=== PATIENT | female | born 1935 | race Caucasian/White ===

== ENCOUNTER 2018-08-05 15:44 | Emergency (ER) | payer MEDICARE, OTHER ==
[~2018-08-05] VITALS: Ht 154.9 cm; Wt 83.9 kg
--- OUTSIDE RECORDS SUMMARY | 2018-08-05 15:51 | XMS REPORT | Continuity of Care Document ---
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 Name Role Phone Anuel Zhang PP Unavailable Payers Payer name Insurance type Covered alliance party ID Authorization(s) Unknown Problems Condition Effective Dates (start - stop) Clinical Status Recurrent infections - *Fair Control Fatigue / Malaise - *Acute Hypothyroidism - *Chronic Leg pain - *Chronic Other specified menopausal and postmenopausal disorders - * Chronic Influenza Vaccine - Depression - *Fair Control - Edema - *Chronic Unspecified chronic bronchitis - *Chronic Family History Family Member Diagnosis Age At Onset Status Unknown Social History Social History Element Description Quantity Unknown Allergies, Adverse Reactions, Alerts Substance Reaction Severity Status Unknown Medications Medication Instructions Dosage Effective Dates (start - stop) Status Take 1 capsule by mouth every day as needed for anxiety. - Active syringe with needle (disp) 3 mL 22 x 1 1/2" 1 every other day. 2012 - Active Lomotil 2.5 mg-0.025 mg tablet take 2 tablet (5MG) by oral route every day as needed stat, then 1 tablet up to four times daily 5 MG - Active Zithromax Z-Doug 250 mg tablet take two tablets for 1 day and one tablet for 4 days. - Active levothyroxine 100 mcg tablet Take 1 tablet by mouth every day. 2012 - Active Depo-Estradiol 5 mg/mL intramuscular oil INJECT 1 ML EVERY 3 WEEKS 2013 - Active fosinopril 40 mg tablet take 1 tab daily - Active theophylline ER 200 mg tablet,extended release,12 hr 1 tab po BID 2013 - Active chlordiazepoxide 10 mg capsule take 1 capsule (10MG) by oral route every day as needed for anxiety - Active Flovent HFA 110 mcg/actuation aerosol inhaler Inhale 2 puffs by mouth twice a day to control asthma. Rinse mouth after use to prevent infection. 2013 - Active Lexapro 20 mg tablet Take 1 tablet by mouth daily. - Active ProAir HFA 90 mcg/actuation aerosol inhaler INHALE ONE TO TWO PUFFS EVERY 4-6 HOURS PRN - Active Percocet 7.5 mg-325 mg tablet Take 1 tablet by mouth 4 times a day as needed. - Active Immunizations Vaccine Date Status Comments Flu (split) (3 yrs or older) completed Flu (split) (3 yrs or older) completed pneumo (2 yrs or older) (PPV23) completed - Completed reason: source unspecified Results Test Name Date and Time Measure Units Reference Range Abnormal Flag Comments Unknown Vital Signs Date / Time: Height Weight Pulse Rate Blood Pressure Temperature /09:35:00 59.50 in 160.10 lbs 52 /min 122/78 mm[Hg] 96.9 F Procedures Procedure Date Unknown Encounters Encounter Location Date Patient Visit [address] Patient Visit Conversion Patient Visit [address] Patient Visit [address] Patient Visit [address] Patient Visit [address] Patient Visit [address] Patient [address] Patient [address] Patient [facility] Patient Visit [address] Patient Visit [address] Patient Visit [address] Patient Visit [address] Patient Visit [facility] Patient Visit [facility] Patient Visit Conversion Advance Directives Directive Effective Date Unknown
--- OUTSIDE RECORDS SUMMARY | 2018-08-05 15:51 | XMS REPORT | Referral Summary ---
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 Care Journalism Internship Name Role Phone Anuel Zhang PCP Encounter VC Date(s): 05/01/17 - 05/01/17 [facility] [address] [place], [place] [address] Discharge Disposition: 01-Home or Self Care Attending Physician: Anuel Zhang MD Admitting Physician: Anuel Zhang MD Vital Signs Most recent to 1 oldest [Reference Range]: Peripheral Pulse 54 bpm Rate [60-100 bpm] *LOW* (05/01/17 10:22 AM) Blood Pressure 132/80 mmHg [90-140/60-90 mmHg] (05/01/17 10:22 AM) SpO2 99 % (05/01/17 10:22 AM) Problem List Condition Effective Dates Status Health Status Informant Thyroid Active disease(Confirmed) Hypertension(Confirm Active ed) Lipoedema(Confirmed) Active Low back Active pain(Confirmed) Allergies, Adverse Reactions, Alerts Substance Reaction Severity Status sulfa drugs hives Active Medications chlordiazePOXIDE 10 mg oral capsule 10 mg 1 caps, Oral, Daily, # 30 caps, 2 Refill(s) Start Date: 03/21/17 Status: Ordered Depo-Estradiol 5 mg/mL intramuscular solution 5 mg, IntraMuscular, q3wk, # 5 mL, 0 Refill(s), Pharmacy: [facility] [id number], 5 mg IntraMuscular q3wk Start Date: 01/25/17 Status: Ordered Flovent HFA 110 mcg/inh inhalation aerosol 2 puffs, Inhalation, BID, # 1 Each, 1 Refill(s), LUIS, Pharmacy: [facility] [id number] Start Date: 03/21/17 Status: Ordered levothyroxine 100 mcg (0.1 mg) oral tablet See Instructions, TAKE 1 TABLET BY MOUTH DAILY, # 30 tabs, 11 Refill(s), Pharmacy: [facility] [id number], TAKE 1 TABLET BY MOUTH DAILY Start Date: 04/06/16 Status: Ordered Lexapro 20 mg oral tablet 20 mg 1 tabs, Oral, Daily, # 30 tabs, 5 Refill(s), Pharmacy: [facility] [id number], 1 tabs Oral Daily Start Date: 01/21/17 Status: Ordered losartan 100 mg oral tablet 100 mg 1 tabs, Oral, Daily, # 90 tabs, 2 Refill(s), [facility] [address], 1 tabs Oral Daily Start Date: 07/12/15 Status: Ordered Misc Prescription Misc Prescription, See Instructions, Exel Syringe [id number] 11 Every other day, # 12 syringes, 4 Refill(s), Pharmacy: [facility] [address], Exel Syringe [id number] 11 ; Every other day Start Date: 12/15/13 Status: Ordered Misc Prescription See Instructions, EXEL SYRINGE [id number] 11 ; EVERY OTHER DAY, # 12 syringes, 2 Refill(s), [id number], EXEL SYRINGE [id number] 11 ; EVERY OTHER DAY Start Date: 10/14/14 Status: Ordered Miscellaneous DME DME Item B-D #9571 SYR/NDL 3ML 23Gx1 LL DX: E28.39, See Instructions, # 1 boxes, 0 Refill(s), [facility] [address], B-D #9571 SYR/NDL 3ML 23Gx1 LL; DX: E28.39, Supply Start Date: 10/12/16 Status: Ordered oxyCODONE-acetaminophen 5 mg-325 mg oral tablet 1 tabs, Oral, QID, DO NOT FILL UNTIL 06/28/17, # 120 tabs, 0 Refill(s) Start Date: 05/01/17 Status: Ordered potassium chloride 20 mEq oral tablet, extended release mEq tabs, Oral, BID, Prescribed by cutter apprentice hand in [place], 0 Refill(s) Start Date: 12/29/14 Status: Ordered ProAir HFA 90 mcg/inh inhalation aerosol See Instructions, INHALE 1 TO 2 PUFFS BY MOUTH EVERY 4 TO 6 HOURS NEEDED, # 8.5 g, 3 Refill(s), Pharmacy: [facility] [id number] Start Date: 01/10/17 Status: Ordered sotalol 80 mg oral tablet 80 mg 1 tabs, Oral, BID, # 60 tabs, 2 Refill(s), Pharmacy: [facility] [id number], 1 tabs Oral BID Start Date: 11/08/15 Status: Ordered theophylline 200 mg oral tablet, extended release See Instructions, TAKE 1 TABLET BY MOUTH TWICE DAILY, # 60 tabs, 1 Refill(s), LUIS, eRx: [facility] [id number], TAKE 1 TABLET BY MOUTH TWICE DAILY Start Date: 09/14/14 Status: Ordered theophylline 200 mg oral tablet, extended release See Instructions, TAKE 1 TABLET BY MOUTH TWICE DAILY, # 60 tabs, 2 Refill(s), LUIS, eRx: [facility] [id number], TAKE 1 TABLET BY MOUTH TWICE DAILY Start Date: 06/15/14 Status: Ordered theophylline 400 mg/24 hours oral tablet, extended release 200 mg 0.5 tabs, Oral, q12hr, # 30 tabs, 6 Refill(s), Pharmacy: [facility] [id number], 0.5 tabs Oral q12hr,x30 days Start Date: 09/06/16 Stop Date: 04/04/17 Status: Ordered Results Chemistry Most recent to 1 oldest [Reference Range]: Sodium Lvl [135-144 142 mEq/L mEq/L] (05/01/17 11:04 AM) Potassium Lvl 4.7 mEq/L [3.5-5.2 mEq/L] (05/01/17 11:04 AM) Chloride [99-111 110 mEq/L mEq/L] (05/01/17 11:04 AM) CO2 [22-31 mEq/L] 23 mEq/L (05/01/17 11:04 AM) AGAP [3-20 mEq/L] 9 mEq/L (05/01/17 11:04 AM) BUN [10-20 mg/dL] 17 mg/dL (05/01/17 11:04 AM) Glucose Lvl [70-99 113 mg/dL mg/dL] *HI* (05/01/17 11:04 AM) Creatinine Lvl 0.69 mg/dL [0.57-1.11 mg/dL] (05/01/17 11:04 AM) eGFR [>60 mL/min] >60 mL/min 1 (05/01/17 11:04 AM) Calcium Lvl 9.3 mg/dL [8.4-10.2 mg/dL] (05/01/17 11:04 AM) Albumin Lvl [3.4-4.8 3.8 gm/dL gm/dL] (05/01/17 11:04 AM) Total Protein 6.5 gm/dL [6.0-7.6 gm/dL] (05/01/17 11:04 AM) Globulin [1.8-4.0 2.7 gm/dL gm/dL] (05/01/17 11:04 AM) ALT [0-55 U/L] 25 U/L (05/01/17 11:04 AM) AST [5-34 U/L] 23 U/L (05/01/17 11:04 AM) Alk Phos [40-150 82 U/L U/L] (05/01/17 11:04 AM) Bili Total [0.2-1.2 0.5 mg/dL mg/dL] (05/01/17 11:04 AM) 1Result Comment: Multiply eGFR results by 1.21 for race. Immunizations Given and Recorded Vaccine Date Status Refusal Reason influenza virus vaccine, live 01/01/13 Given influenza virus vaccine, live 01/31/12 Given pneumococcal 23-polyvalent vaccine 01/06/09 Recorded Procedures No data available for this section Social History Social History Type Response Smoking Status Never smoker entered on: 12/03/13 Assessment and Plan Extracted from: Title: Ambulatory Patient Education Author: Liana Arnett MA Date: 05/01/17 The following Patient Education Materials have been given to the patient: Preventive Health Hypertension Hypertension, commonly called high blood pressure, is when the force of blood pumping through your arteries is too strong. Your arteries are the blood vessels that carry blood from your heart throughout your body. A blood pressure reading consists of a higher number over a lower number, such as 110/72. The higher number (systolic) is the pressure inside your arteries when your heart pumps. The lower number (diastolic) is the pressure inside your arteries when your heart relaxes. Ideally you want your blood pressure below 120/80. Hypertension forces your heart to work harder to pump blood. Your arteries may become narrow or stiff. Having untreated or uncontrolled hypertension can cause heart attack, stroke, kidney disease, and other problems. RISK FACTORS Some risk factors for high blood pressure are controllable. Others are not. Risk factors you cannot control include: Race. You may be at higher risk if you are . Age. Risk increases with age. Gender. Men are at higher risk than women before age 45 years. After age 65, women are at higher risk than men. Risk factors you can control include: Not getting enough exercise or physical activity. Being overweight. Getting too much fat, sugar, calories, or salt in your diet. Drinking too much alcohol. SIGNS AND SYMPTOMS Hypertension does not usually cause signs or symptoms. Extremely high blood pressure (hypertensive crisis) may cause headache, anxiety, shortness of breath , and nosebleed. DIAGNOSIS To check if you have hypertension, your health care provider will measure your blood pressure while you are seated, with your arm held at the level of your heart. It should be measured at least twice using the same arm. Certain conditions can cause a difference in blood pressure between your right and left arms. A blood pressure reading that is higher than normal on one occasion does not mean that you need treatment. If it is not clear whether you have high blood pressure, you may be asked to return on a different day to have your blood pressure checked again. Or, you may be asked to monitor your blood pressure at home for 1 or more weeks. TREATMENT Treating high blood pressure includes making lifestyle changes and possibly taking medicine. Living a healthy lifestyle can help lower high blood pressure. You may need to change some of your habits. Lifestyle changes may include: Following the DASH diet. This diet is high in fruits, vegetables, and whole grains. It is low in salt, red meat, and added sugars. Keep your sodium intake below 2,300 mg per day. Getting at least 30 45 minutes of aerobic exercise at least 4 times per week. Losing weight if necessary. Not smoking. Limiting alcoholic beverages. Learning ways to reduce stress. Your health care provider may prescribe medicine if lifestyle changes are not enough to get your blood pressure under control, and if one of the following is true: You are 18 59 years of age and your systolic blood pressure is above 140. You are 60 years of age or older, and your systolic blood pressure is above 150. Your diastolic blood pressure is above 90. You have diabetes, and your systolic blood pressure is over 140 or your diastolic blood pressure is over 90. You have kidney disease and your blood pressure is above 140/90. You have heart disease and your blood pressure is above 140/90. Your personal target blood pressure may vary depending on your medical conditions, your age, and other factors. HOME CARE INSTRUCTIONS Have your blood pressure rechecked as directed by your health care provider. Take medicines only as directed by your health care provider. Follow the directions carefully. Blood pressure medicines must be taken as prescribed. The medicine does not work as well when you skip doses. Skipping doses also puts you at risk for problems. Do not smoke. Monitor your blood pressure at home as directed by your health care provider. SEEK MEDICAL CARE IF: You think you are having a reaction to medicines taken. You have recurrent headaches or feel dizzy. You have swelling in your ankles. You have trouble with your vision. SEEK IMMEDIATE MEDICAL CARE IF: You develop a severe headache or confusion. You have unusual weakness, numbness, or feel faint. You have severe chest or abdominal pain. You vomit repeatedly. You have trouble breathing. MAKE SURE YOU: Understand these instructions. Will watch your condition. Will get help right away if you are not doing well or get worse. This information is not intended to replace advice given to you by your health care provider. Make sure you discuss any questions you have with your health care provider. Document Released: 04/08/2006 Document Revised: 08/23/2015 Document Reviewed: [employer] Patient Education 2017 [employer] No follow up information was provided. Extracted from: Title: Three month controlled Author: Anuel Zhang MD Date: 05/01/17 medications Impression and Plan Diagnosis Low back pain (DXH10-CJ M54.5, Working, Medical). Hypertension (UHJ36-JB I10, Working, Medical). Plan: Patient will decrease Percocet to 5mg. She was advised over time she does need the medication decreased. She was advised to have her blood work checked today for her potassium level.. Patient Instructions: Hypertension. Counseled: Patient, Verbalized understanding. 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
--- OUTSIDE RECORDS SUMMARY | 2018-08-05 15:51 | XMS REPORT | Referral Summary ---
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 Care Animal Care Service Worker Name Role Phone Anuel Zhang PCP Encounter VC Date(s): 01/10/17 - 01/10/17 [facility] [address], [place] [address] [place] Discharge Disposition: 01-Home or Self Care Attending Physician: Anuel Zhang MD Admitting Physician: Anuel Zhang MD Vital Signs Most recent to 1 oldest [Reference Range]: Peripheral Pulse 56 bpm Rate [60-100 bpm] *LOW* (01/10/17 4:02 PM) Blood Pressure 126/82 mmHg [90-140/60-90 mmHg] (01/10/17 4:02 PM) SpO2 94 % (01/10/17 4:02 PM) Problem List Condition Effective Dates Status Health Status Informant Lipoedema(Confirmed) Active Allergies, Adverse Reactions, Alerts Substance Reaction Severity Status sulfa drugs hives Active Medications chlordiazePOXIDE 10 mg oral capsule 10 mg 1 caps, Oral, Daily, # 30 caps, 2 Refill(s) Start Date: 09/13/16 Status: Ordered Depo-Estradiol 5 mg/mL intramuscular solution 5 mg, IntraMuscular, q3wk, # 5 mL, 0 Refill(s), Pharmacy: [facility] [address]482, 5 mg IntraMuscular q3wk Start Date: 05/01/16 Status: Ordered Flovent HFA 110 mcg/inh inhalation aerosol See Instructions, INHALE 2 PUFFS BY MOUTH TWICE DAILY, # 12 g, 1 Refill(s), LUIS , Pharmacy: [facility] [id number] Start Date: 12/21/16 Status: Ordered fosinopril 40 mg oral tablet See Instructions, TAKE ONE TABLET BY MOUTH DAILY, # 30 tabs, 2 Refill(s), LUIS, [id number], TAKE ONE TABLET BY MOUTH DAILY Start Date: 11/16/13 Status: Ordered furosemide 40 mg oral tablet 40 mg 1 tabs, Oral, Daily, # 30 tabs, 0 Refill(s), Pharmacy: [facility] , 1 tabs Oral Daily Start Date: 02/10/16 Status: Ordered levothyroxine 100 mcg (0.1 mg) oral tablet See Instructions, TAKE 1 TABLET BY MOUTH DAILY, # 30 tabs, 11 Refill(s), [facility] [address], TAKE 1 TABLET BY MOUTH DAILY Start Date: 04/06/16 Status: Ordered Lexapro 20 mg oral tablet 20 mg 1 tabs, Oral, Daily, # 30 tabs, 5 Refill(s), [facility] [address], 1 tabs Oral Daily Start Date: 07/30/16 Status: Ordered Lomotil 2.5 mg-0.025 mg oral tablet 1 tabs, Oral, QID, as needed for loose stool, 0 Refill(s) Start Date: 12/03/13 Status: Ordered losartan 100 mg oral tablet See Instructions, TAKE 1 TABLET BY MOUTH DAILY, # 90 tabs, 3 Refill(s), [facility] [id number], TAKE 1 TABLET BY MOUTH DAILY Start Date: 04/06/16 Status: Ordered losartan 100 mg oral tablet 100 mg 1 tabs, Oral, Daily, # 90 tabs, 2 Refill(s), Pharmacy: [facility] [address], 1 tabs Oral Daily Start Date: 07/12/15 Status: Ordered Misc Prescription Misc Prescription, See Instructions, Exel Syringe [id number] 11 Every other day, # 12 syringes, 4 Refill(s), Pharmacy: [facility] [id number], Exel Syringe [id number] 11 ; Every other day Start Date: 12/15/13 Status: Ordered Misc Prescription See Instructions, EXEL SYRINGE [id number] 11 ; EVERY OTHER DAY, # 12 syringes, 2 Refill(s), eRx: [facility] [id number], EXEL SYRINGE [id number] 11 ; EVERY OTHER DAY Start Date: 10/14/14 Status: Ordered Miscellaneous DME DME Item B-D #9571 SYR/NDL 3ML 23Gx1 LL DX: E28.39, See Instructions, # 1 boxes, 0 Refill(s), [facility] [id number], B-D #9571 SYR/NDL 3ML 23Gx1 LL; DX: E28.39, Supply Start Date: 10/12/16 Status: Ordered Percocet 7.5/325 oral tablet 1 tabs, Oral, QID, # 120 tabs, 0 Refill(s) Start Date: 10/09/16 Status: Ordered potassium chloride 20 mEq oral tablet, extended release mEq tabs, Oral, BID, Prescribed by measurer in [place], 0 Refill(s) Start Date: 12/29/14 Status: Ordered ProAir HFA 90 mcg/inh inhalation aerosol See Instructions, INHALE 1 TO 2 PUFFS BY MOUTH EVERY 4 TO 6 HOURS NEEDED, # 8.5 g, 3 Refill(s), Pharmacy: [facility] [address]132 Start Date: 01/10/17 Status: Ordered sotalol 80 mg oral tablet 80 mg 1 tabs, Oral, BID, # 60 tabs, 2 Refill(s), Pharmacy: [facility] 30331, 1 tabs Oral BID Start Date: 11/08/15 Status: Ordered theophylline 200 mg oral tablet, extended release See Instructions, TAKE 1 TABLET BY MOUTH TWICE DAILY, # 60 tabs, 1 Refill(s), LUIS, eRx: [facility] [id number], TAKE 1 TABLET BY MOUTH TWICE DAILY Start Date: 09/14/14 Status: Ordered theophylline 200 mg oral tablet, extended release See Instructions, TAKE 1 TABLET BY MOUTH TWICE DAILY, # 60 tabs, 2 Refill(s), LUIS, eRx: [facility] [id number], TAKE 1 TABLET BY MOUTH TWICE DAILY Start Date: 06/15/14 Status: Ordered theophylline 400 mg/24 hours oral tablet, extended release 200 mg 0.5 tabs, Oral, q12hr, # 30 tabs, 6 Refill(s), Pharmacy: [facility] 09815, 0.5 tabs Oral q12hr,x30 days Start Date: 09/06/16 Stop Date: 04/04/17 Status: Ordered valACYclovir 500 mg oral tablet 500 mg 1 tabs, Oral, q12hr, X 5 days, # 10 tabs, 3 Refill(s), Pharmacy: [facility] 93186, 1 tabs Oral q12hr,x5 days Start Date: 01/10/17 Stop Date: 01/30/17 Status: Ordered Results No data available for this section Immunizations Given and Recorded Vaccine Date Status Refusal Reason influenza virus vaccine, live 01/01/13 Given influenza virus vaccine, live 01/31/12 Given pneumococcal 23-polyvalent vaccine 01/06/09 Recorded Procedures No data available for this section Social History Social History Type Response Smoking Status Never smoker entered on: 12/03/13 Assessment and Plan Extracted from: Title: Pain meds Author: Anuel Zhang MD Date: 01/10/17 Impression and Plan Diagnosis Lipoedema (QFG21-FA R60.9, Working, Medical). Low back pain (RUQ78-GU M54.5, Working, Medical). Plan: 1. Patient medications reviewed. 2. Patient given refills on ProAir and Valacyclovir. 3. Patients pain medication will be filled when she is needing it. 4. Patient will follow up when she is in town again. . Patient Instructions: Back Pain, Adult. Counseled: Patient. Orders Orders Evaluation and Management: Office Visit Level 3 Est [id number] (Order): 01/10/2017 16:24 CDT, Lipoedema | Low back pain."
--- OUTSIDE RECORDS SUMMARY | 2018-08-05 15:51 | XMS REPORT | Referral Summary ---
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 Role Phone Anuel Zhang PCP Encounter VC Date(s): 08/02/17 - 08/02/17 [facility] [address] [place], [place] [address] Discharge Disposition: 01-Home or Self Care Attending Physician: Anuel Zhang MD Admitting Physician: Anuel Zhang MD Vital Signs Most recent to 1 oldest [Reference Range]: Peripheral Pulse 50 bpm Rate [60-100 bpm] *LOW* (08/02/17 10:57 AM) Blood Pressure 124/76 mmHg [90-140/60-90 mmHg] (08/02/17 10:57 AM) SpO2 97 % (08/02/17 10:57 AM) Problem List Condition Effective Dates Status Health Status Informant Thyroid Active disease(Confirmed) Hypertension(Confirm Active ed) Lipoedema(Confirmed) Active Low back Active pain(Confirmed) Allergies, Adverse Reactions, Alerts Substance Reaction Severity Status sulfa drugs hives Active Medications chlordiazePOXIDE 10 mg oral capsule 10 mg 1 caps, Oral, Daily, # 30 caps, 2 Refill(s) Start Date: 07/18/17 Status: Ordered Depo-Estradiol 5 mg/mL intramuscular solution 5 mg, IntraMuscular, q3wk, # 5 mL, 0 Refill(s), Pharmacy: [facility] [id number], 5 mg IntraMuscular q3wk Start Date: 07/08/17 Status: Ordered Flovent HFA 110 mcg/inh inhalation aerosol 2 puffs, Inhalation, BID, # 1 Each, 3 Refill(s), LUIS, Pharmacy: [facility] [id number] Start Date: 07/12/17 Status: Ordered levothyroxine 100 mcg (0.1 mg) oral tablet See Instructions, TAKE 1 TABLET BY MOUTH DAILY, # 30 tabs, 11 Refill(s), Pharmacy: [facility] [id number], TAKE 1 TABLET BY MOUTH DAILY Start Date: 04/06/16 Status: Ordered Lexapro 20 mg oral tablet 20 mg 1 tabs, Oral, Daily, # 30 tabs, 5 Refill(s), Pharmacy: [facility] [id number], 1 tabs Oral Daily Start Date: 07/22/17 Status: Ordered losartan 100 mg oral tablet 100 mg 1 tabs, Oral, Daily, # 90 tabs, 2 Refill(s), Pharmacy: [facility] [id number], 1 tabs Oral Daily Start Date: 07/12/15 Status: Ordered Misc Prescription Misc Prescription, See Instructions, Exel Syringe [id number] 11 Every other day, # 12 syringes, 4 Refill(s), Pharmacy: [facility] [id number], Exel Syringe [id number] 11 ; Every other day Start Date: 12/15/13 Status: Ordered Misc Prescription See Instructions, EXEL SYRINGE [id number] 11 ; EVERY OTHER DAY, # 12 syringes, 2 Refill(s), [id number], EXEL SYRINGE [id number] 11 ; EVERY OTHER DAY Start Date: 10/14/14 Status: Ordered Miscellaneous DME DME Item B-D #9571 SYR/NDL 3ML 23Gx1 LL DX: E28.39, See Instructions, # 1 boxes, 0 Refill(s), [id number], B-D #9571 SYR/NDL 3ML 23Gx1 LL; DX: E28.39, Supply Start Date: 10/12/16 Status: Ordered oxyCODONE-acetaminophen 5 mg-325 mg oral tablet 1 tabs, Oral, QID, DO NOT FILL UNTIL 09/29/2017, # 120 tabs, 0 Refill(s) Start Date: 08/02/17 Status: Ordered potassium chloride 20 mEq oral tablet, extended release mEq tabs, Oral, BID, Prescribed by bulk sugar handler in [place], 0 Refill(s) Start Date: 12/29/14 Status: Ordered ProAir HFA 90 mcg/inh inhalation aerosol See Instructions, INHALE 1 TO 2 PUFFS BY MOUTH EVERY 4 TO 6 HOURS NEEDED, # 8.5 g, 3 Refill(s), Pharmacy: [facility] [id number] Start Date: 07/29/17 Status: Ordered sotalol 80 mg oral tablet 80 mg 1 tabs, Oral, BID, # 60 tabs, 2 Refill(s), Pharmacy: [facility] [id number], 1 tabs Oral BID Start Date: 11/08/15 Status: Ordered theophylline 200 mg oral tablet, extended release See Instructions, TAKE 1 TABLET BY MOUTH TWICE DAILY, # 60 tabs, 1 Refill(s), LUIS, eRx: [facility] [id number], TAKE 1 TABLET BY MOUTH TWICE DAILY Start Date: 09/14/14 Status: Ordered theophylline 200 mg oral tablet, extended release See Instructions, TAKE 1 TABLET BY MOUTH TWICE DAILY, # 60 tabs, 2 Refill(s), LUIS, eRx: [facility] [id number], TAKE 1 TABLET BY MOUTH TWICE DAILY Start Date: 06/15/14 Status: Ordered theophylline 400 mg/24 hours oral tablet, extended release 200 mg 0.5 tabs, Oral, q12hr, # 30 tabs, 6 Refill(s), Pharmacy: [facility] [id number], 0.5 tabs Oral q12hr,x30 days Start Date: 09/06/16 Stop Date: 04/04/17 Status: Ordered Results No data available for this section Immunizations Given and Recorded Vaccine Date Status Refusal Reason influenza virus vaccine, live 01/01/13 Given influenza virus vaccine, live 01/31/12 Given pneumococcal 23-polyvalent vaccine 01/06/09 Recorded Procedures No data available for this section Social History Social History Type Response Smoking Status Never smoker entered on: 12/03/13 Assessment and Plan Extracted from: Title: Little bit of everything Author: Anuel Zhang MD Date: Impression and Plan Diagnosis Lipoedema ([id number]-PA R60.9, Working, Medical). Low back pain ([id number]-AJ M54.5, Working, Medical). Yeast infection of the skin (MIM15-YD B37.2, Working, Medical). Plan: 1. Patient medications reviewed. 2. Patient given a refill on her pain medication. 3. Patient advised to use Lamisil AT over the counter for the yeast infection. 4. Patient advised to use a Probiotic like Activa to help with the digestion issues. 5. Patient is to follow up in three months. . Patient Instructions: Back Pain, Adult. Counseled: Patient. Orders Orders Evaluation and Management: Office Visit Level 3 Est 38001 (Order): 08/02/2017 11:22 CDT, Lipoedema | Low back pain | Yeast infection of the skin."
--- OUTSIDE RECORDS SUMMARY | 2018-08-05 15:51 | XMS REPORT | Referral Summary ---
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 Name Role Phone Anuel Zhang PCP Encounter VC Date(s): 12/29/14 - 12/29/14 [facility] [address], [place] [address] Discharge Diagnosis: Hypothyroidism Discharge Diagnosis: Lipoedema Discharge Diagnosis: Hypokalemia Discharge Disposition: 01-Home or Self Care Attending Physician: Anuel Zhang MD Admitting Physician: Anuel Zhang MD Vital Signs Most recent to 1 oldest [Reference Range]: Temperature Tympanic 36.5 degC [36.6-38.1 degC] *LOW* (12/29/14 10:33 AM) Apical Heart Rate 58 bpm [60-100 bpm] *LOW* (12/29/14 10:33 AM) Blood Pressure 115/80 mmHg [90-140/60-90 mmHg] (12/29/14 10:33 AM) SpO2 95 % (12/29/14 10:33 AM) Problem List Condition Effective Dates Status Health Status Informant Lipoedema(Confirmed) Active Allergies, Adverse Reactions, Alerts Substance Reaction Severity Status sulfa drugs hives Active Medications chlordiazePOXIDE 10 mg oral capsule 10 mg 1 caps, Oral, Daily, [facility]/[phone], # 30 caps, 1 Refill(s) Start Date: 06/24/15 Status: Ordered Depo-Estradiol 5 mg/mL intramuscular solution See Instructions, INJECT 1 ML EVERY 3 WEEKS, # 5 mL, 1 Refill(s), Pharmacy: [id number], INJECT 1 ML EVERY 3 WEEKS Start Date: 06/03/15 Status: Ordered Flovent HFA 110 mcg/inh inhalation aerosol See Instructions, TAKE 2 PUFFS BY MOUTH TWICE DAILY, # 12 unknown unit, 5 Refill (s), LUIS, eRx: [facility] [id number], TAKE 2 PUFFS BY MOUTH TWICE DAILY Start Date: 08/16/14 Status: Ordered Flovent HFA 110 mcg/inh inhalation aerosol See Instructions, TAKE 2 PUFFS BY MOUTH TWICE DAILY, # 12 g, 2 Refill(s), LUIS, Pharmacy: [facility] [id number] Start Date: 05/20/15 Status: Ordered Flovent HFA 110 mcg/inh inhalation aerosol See Instructions, TAKE 2 PUFFS BY MOUTH TWICE DAILY, # 12 unknown unit, 1 Refill (s), LUIS, eRx: [facility] [id number], TAKE 2 PUFFS BY MOUTH TWICE DAILY Start Date: 05/17/14 Status: Ordered fosinopril 40 mg oral tablet See Instructions, TAKE ONE TABLET BY MOUTH DAILY, # 30 tabs, 2 Refill(s), LUIS, eRx: [facility] [id number], TAKE ONE TABLET BY MOUTH DAILY Start Date: 11/16/13 Status: Ordered levothyroxine 100 mcg (0.1 mg) oral tablet 100 mcg 1 tabs, Oral, Daily, X 30 days, # 30 tabs, 11 Refill(s), Pharmacy: [facility] [address], 1 tabs Oral Daily,x30 days Start Date: 04/18/15 Stop Date: 04/12/16 Status: Ordered Lexapro 20 mg oral tablet See Instructions, TAKE 1 TABLET BY MOUTH DAILY., # 30 tabs, 5 Refill(s), Pharmacy: [facility] [id number], TAKE 1 TABLET BY MOUTH DAILY. Start Date: 06/30/15 Status: Ordered Lomotil 2.5 mg-0.025 mg oral tablet 1 tabs, Oral, QID, as needed for loose stool, 0 Refill(s) Start Date: 12/03/13 Status: Ordered losartan 100 mg oral tablet 1 tabs, Oral, Daily, # 90 tabs, 3 Refill(s), Pharmacy: [facility] [address], 1 tabs Oral Daily Start Date: 06/03/14 Status: Ordered Misc Prescription Misc Prescription, See Instructions, Exel Syringe [id number] 11 Every other day, # 12 syringes, 4 Refill(s), Pharmacy: [facility] [address], Exel Syringe [id number] 11 ; Every other day Start Date: 12/15/13 Status: Ordered Misc Prescription See Instructions, EXEL SYRINGE [id number] 11 ; EVERY OTHER DAY, # 12 syringes, 2 Refill(s), eRx: [facility] [id number], EXEL SYRINGE [id number] 11 ; EVERY OTHER DAY Start Date: 10/14/14 Status: Ordered Percocet 7.5/325 oral tablet 1 tabs, Oral, QID, may refill after 08/30/15, # 120 tabs, 0 Refill(s) Start Date: 07/04/15 Status: Ordered potassium chloride 20 mEq oral tablet, extended release mEq tabs, Oral, BID, Prescribed by melt superintendant in [place], 0 Refill(s) Start Date: 12/29/14 Status: Ordered ProAir HFA 90 mcg/inh inhalation aerosol See Instructions, INHALE 1 TO 2 PUFFS BY MOUTH EVERY 4 TO 6 HOURS NEEDED, # 9 g, 2 Refill(s), Pharmacy: [facility] [id number] Start Date: 07/08/15 Status: Ordered theophylline 200 mg oral tablet, extended release See Instructions, TAKE 1 TABLET BY MOUTH TWICE DAILY, # 60 tabs, 1 Refill(s), LUIS, eRx: [facility] [id number], TAKE 1 TABLET BY MOUTH TWICE DAILY Start Date: 09/14/14 Status: Ordered theophylline 200 mg oral tablet, extended release 200 mg 1 tabs, Oral, q12hr, # 60 tabs, 3 Refill(s), LUIS, Pharmacy: [facility] [id number], 1 tabs Oral q12hr Start Date: 03/10/15 Status: Ordered theophylline 200 mg oral tablet, extended release See Instructions, TAKE 1 TABLET BY MOUTH TWICE DAILY, # 60 tabs, 2 Refill(s), LUIS, eRx: [facility] [id number], TAKE 1 TABLET BY MOUTH TWICE DAILY Start Date: 06/15/14 Status: Ordered valACYclovir 500 mg oral tablet See Instructions, tabs mg Oral q12hr, 0 Refill(s) Start Date: 03/22/14 Status: Ordered Results No data available for this section Immunizations Vaccine Date Refusal Reason influenza virus vaccine, live 01/01/13 influenza virus vaccine, live 01/31/12 pneumococcal 23-polyvalent vaccine 01/06/09 Procedures No data available for this section Social History Social History Type Response Smoking Status Never smoker Assessment and Plan Extracted from: Title: Ambulatory Patient Education Author: Anuel Zhang MD Date: Family Medicine Hypokalemia Hypokalemia means that the amount of potassium in the blood is lower than normal.Potassium is a chemical, called an electrolyte, that helps regulate the amount of fluid in the body. It also stimulates muscle contraction and helps nerves function properly.Most of the body's potassium is inside of cells , and only a very small amount is in the blood. Because the amount in the blood is so small, minor changes can be life-threatening. CAUSES Antibiotics. Diarrhea or vomiting. Using laxatives too much, which can cause diarrhea. Chronic kidney disease. Water pills (diuretics). Eating disorders (bulimia). Low magnesium level. Sweating a lot. SIGNS AND SYMPTOMS Weakness. Constipation. Fatigue. Muscle cramps. Mental confusion. Skipped heartbeats or irregular heartbeat (palpitations). Tingling or numbness. DIAGNOSIS Your health care provider can diagnose hypokalemia with blood tests. In addition to checking your potassium level, your health care provider may also check other lab tests. TREATMENT Hypokalemia can be treated with potassium supplements taken by mouth or adjustments in your current medicines. If your potassium level is very low, you may need to get potassium through a vein (IV) and be monitored in the hospital. A diet high in potassium is also helpful. Foods high in potassium are: Nuts, such as peanuts and pistachios. Seeds, such as sunflower seeds and pumpkin seeds. Peas, lentils, and vaughn beans. Whole grain and bran cereals and breads. Fresh fruit and vegetables, such as apricots, avocado, bananas, cantaloupe, kiwi, oranges, tomatoes, asparagus, and potatoes. [place] and tomato juices. Red meats. Fruit yogurt. HOME CARE INSTRUCTIONS Take all medicines as prescribed by your health care provider. Maintain a healthy diet by including nutritious food, such as fruits, vegetables, nuts, whole grains, and lean meats. If you are taking a laxative, be sure to follow the directions on the label. SEEK MEDICAL CARE IF: Your weakness gets worse. You feel your heart pounding or racing. You are vomiting or having diarrhea. You are diabetic and having trouble keeping your blood glucose in the normal range. SEEK IMMEDIATE MEDICAL CARE IF: You have chest pain, shortness of breath, or dizziness. You are vomiting or having diarrhea for more than 2 days. You faint. MAKE SURE YOU: Understand these instructions. Will watch your condition. Will get help right away if you are not doing well or get worse. Document Released: 04/08/2006 Document Revised: 01/27/2014 Document Reviewed: [facility] Patient Information 2015 [employer]. This information is not intended to replace advice given to you by your health care provider. Make sure you discuss any questions you have with your health care provider. No follow up information was provided. Extracted from: Title: Office Visit Note Author: Anuel Zhang MD Date: 12/29/14 Assessment/Plan Hypokalemia We will check the potassium today and refill her pain medication. Ordered: Comprehensive Metabolic Panel Office Visit Level 3 Est 70700 Hypothyroidism We will check her blood tests for thyroid Ordered: Office Visit Level 3 Est 32600 TSH with Reflex Free T4 Lipoedema No treatment for this problem Ordered: Office Visit Level 3 Est 34526 Orders: oxyCODONE-acetaminophen, 1 tabs, Oral, QID, DO NOT FILL UNTIL 02/25/15 , # 120 tabs, 0 Refill(s)
--- OUTSIDE RECORDS SUMMARY | 2018-08-05 15:51 | XMS REPORT | Referral Summary ---
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 Name Role Phone Anuel Zhang PCP Encounter VC Date(s): 10/28/15 - 10/28/15 [facility] [address], [place] [address] Discharge Disposition: 01-Home or Self Care Attending Physician: Aunel Zhang MD Admitting Physician: Anuel Zhang MD Vital Signs Most recent to 1 oldest [Reference Range]: Peripheral Pulse 53 bpm Rate [60-100 bpm] *LOW* (10/28/15 3:11 PM) Blood Pressure 132/78 mmHg [90-140/60-90 mmHg] (10/28/15 3:11 PM) SpO2 98 % (10/28/15 3:11 PM) Problem List Condition Effective Dates Status Health Status Informant Lipoedema(Confirmed) Active Allergies, Adverse Reactions, Alerts Substance Reaction Severity Status sulfa drugs hives Active Medications chlordiazePOXIDE 10 mg oral capsule 10 mg 1 caps, Oral, Daily, Swivel/[phone], # 30 caps, 1 Refill(s) Start Date: 08/01/15 Status: Ordered Depo-Estradiol 5 mg/mL intramuscular solution See Instructions, INJECT 1 ML EVERY 3 WEEKS, # 5 mL, 1 Refill(s), Pharmacy: [facility] [id number], INJECT 1 ML EVERY 3 WEEKS Start Date: 06/03/15 Status: Ordered Flovent HFA 110 mcg/inh inhalation aerosol See Instructions, TAKE 2 PUFFS BY MOUTH TWICE DAILY, # 12 unknown unit, 5 Refill (s), LUIS, eRx: [facility] [id number], TAKE 2 PUFFS BY MOUTH TWICE DAILY Start Date: 08/16/14 Status: Ordered Flovent HFA 110 mcg/inh inhalation aerosol See Instructions, TAKE 2 PUFFS BY MOUTH TWICE DAILY, # 12 g, 2 Refill(s), [id number] Start Date: 08/29/15 Status: Ordered Flovent HFA 110 mcg/inh inhalation aerosol See Instructions, TAKE 2 PUFFS BY MOUTH TWICE DAILY, # 12 unknown unit, 1 Refill (s), LUIS, eRx: [facility] [id number], TAKE 2 PUFFS BY MOUTH TWICE DAILY Start Date: 05/17/14 Status: Ordered fosinopril 40 mg oral tablet See Instructions, TAKE ONE TABLET BY MOUTH DAILY, # 30 tabs, 2 Refill(s), LUIS, eRx: [facility] [id number], TAKE ONE TABLET BY MOUTH DAILY Start Date: 11/16/13 Status: Ordered levothyroxine 100 mcg (0.1 mg) oral tablet 100 mcg 1 tabs, Oral, Daily, X 30 days, # 30 tabs, 11 Refill(s), Pharmacy: [facility] [id number], 1 tabs Oral Daily,x30 days Start Date: 04/18/15 Stop Date: 04/12/16 Status: Ordered Lexapro 20 mg oral tablet See Instructions, TAKE 1 TABLET BY MOUTH DAILY., # 30 tabs, 5 Refill(s), Pharmacy: [facility] [id number], TAKE 1 TABLET BY MOUTH DAILY. Start Date: 06/30/15 Status: Ordered Lomotil 2.5 mg-0.025 mg oral tablet 1 tabs, Oral, QID, as needed for loose stool, 0 Refill(s) Start Date: 12/03/13 Status: Ordered losartan 100 mg oral tablet 100 mg 1 tabs, Oral, Daily, # 90 tabs, 2 Refill(s), Pharmacy: [facility] [id number], 1 tabs Oral Daily Start Date: 07/12/15 Status: Ordered Misc Prescription Misc Prescription, See Instructions, Exel Syringe [id number] 11 Every other day, # 12 syringes, 4 Refill(s), Pharmacy: [facility] [id number], Exel Syringe [id number] 11 ; Every other day Start Date: 12/15/13 Status: [facility] See Instructions, EXEL SYRINGE [id number] 11 ; EVERY OTHER DAY, # 12 syringes, 2 Refill(s), eRx: [facility] [id number], EXEL SYRINGE [id number] 11 ; EVERY OTHER DAY Start Date: 10/14/14 Status: Ordered Percocet 7.5/325 oral tablet 1 tabs, Oral, QID, may refill after 11/24/2015, # 120 tabs, 0 Refill(s) Start Date: 09/27/15 Status: Ordered potassium chloride 20 mEq oral tablet, extended release mEq tabs, Oral, BID, Prescribed by undercutter operator in [place], 0 Refill(s) Start Date: 12/29/14 Status: Ordered ProAir HFA 90 mcg/inh inhalation aerosol See Instructions, INHALE 1 TO 2 PUFFS BY MOUTH EVERY 4 TO 6 HOURS NEEDED, # 9 g, 2 Refill(s), Pharmacy: [facility] [id number] Start Date: 07/08/15 Status: Ordered theophylline 200 mg oral tablet, extended release 200 mg 1 tabs, Oral, q12hr, # 60 tabs, 3 Refill(s), LUIS, Pharmacy: [facility] [id number], 1 tabs Oral q12hr Start Date: 07/12/15 Status: Ordered theophylline 200 mg oral tablet, extended release See Instructions, TAKE 1 TABLET BY MOUTH TWICE DAILY, # 60 tabs, 1 Refill(s), LUIS, eRx: [facility] [id number], TAKE 1 TABLET BY MOUTH TWICE DAILY Start Date: 09/14/14 Status: Ordered theophylline 200 mg oral tablet, extended release See Instructions, TAKE 1 TABLET BY MOUTH TWICE DAILY, # 60 tabs, 2 Refill(s), LUIS, eRx: [facility] [id number], TAKE 1 TABLET BY MOUTH TWICE DAILY Start Date: 06/15/14 Status: Ordered Results Hematology Most recent to 1 oldest [Reference Range]: WBC [4.8-10.8 8.0 10*3/uL 10*3/uL] (10/28/15 3:30 PM) RBC [4.00-5.20] 4.07 (10/28/15 3:30 PM) Hgb [12.0-16.0 13.6 gm/dL gm/dL] (10/28/15 3:30 PM) Hct [37.0-47.0 %] 41.5 % (10/28/15 3:30 PM) MCV [82.0-99.0 fL] 102.0 fL *HI* (10/28/15 3:30 PM) MCH [27.0-32.0 pg] 33.4 pg *HI* (10/28/15 3:30 PM) MCHC [32.0-36.0 32.8 gm/dL gm/dL] (10/28/15 3:30 PM) RDW [11.5-14.5 %] 13.2 % (10/28/15 3:30 PM) Platelet [150-400 220 10*3/uL 10*3/uL] (10/28/15 3:30 PM) MPV [8.8-14.8 fL] 12.6 fL (10/28/15 3:30 PM) Immature 0.2 % Granulocytes (10/28/15 3:30 PM) [0.0-1.0 %] Neutrophils [51-75 66 % %] (10/28/15 3:30 PM) Lymphocytes [20-46 21 % %] (10/28/15 3:30 PM) Monocytes [4-11 %] 10 % (10/28/15 3:30 PM) Eosinophils [0-4 %] 2 % (10/28/15 3:30 PM) Basophils [0-2 %] 1 % (10/28/15 3:30 PM) Neutro Absolute 5.33 10*3 [1.90-7.00 10*3] (10/28/15 3:30 PM) Lymph Absolute 1.71 10*3 [0.80-3.30 10*3] (10/28/15 3:30 PM) Crawford Absolute 0.81 10*3 [0.30-1.00 10*3] (10/28/15 3:30 PM) Eos Absolute 0.14 10*3 [0.00-0.50 10*3] (10/28/15 3:30 PM) Baso Absolute 0.04 10*3 [0.00-0.20 10*3] (10/28/15 3:30 PM) Chemistry Most recent to 1 oldest [Reference Range]: Sodium Lvl [135-144 140 mEq/L mEq/L] (10/28/15 3:30 PM) Potassium Lvl 5.1 mEq/L [3.5-5.2 mEq/L] (10/28/15 3:30 PM) Chloride [99-111 109 mEq/L mEq/L] (10/28/15 3:30 PM) CO2 [22-31 mEq/L] 25 mEq/L (10/28/15 3:30 PM) AGAP [3-20] 6 (10/28/15 3:30 PM) BUN [10-20 mg/dL] 20 mg/dL (10/28/15 3:30 PM) Glucose Lvl [70-99 95 mg/dL mg/dL] (10/28/15 3:30 PM) Creatinine Lvl 0.77 mg/dL [0.57-1.11 mg/dL] (10/28/15 3:30 PM) eGFR [>60 mL/min] >60 mL/min 1 (10/28/15 3:30 PM) Calcium Lvl 9.3 mg/dL [8.9-10.5 mg/dL] (10/28/15 3:30 PM) Albumin Lvl [3.4-4.8 3.9 gm/dL gm/dL] (10/28/15 3:30 PM) Total Protein 6.1 gm/dL 2 [6.0-7.6 gm/dL] (10/28/15 3:30 PM) Globulin [1.8-4.0 2.2 gm/dL gm/dL] (10/28/15 3:30 PM) ALT [0-55 U/L] 19 U/L (10/28/15 3:30 PM) AST [5-34 U/L] 23 U/L (10/28/15 3:30 PM) Alk Phos [40-150 106 U/L U/L] (10/28/15 3:30 PM) Bili Total [0.2-1.2 0.3 mg/dL mg/dL] (10/28/15 3:30 PM) TSH with Reflex Free 1.32 T4 [0.35-4.94] (10/28/15 3:30 PM) 1Result Comment: Multiply eGFR results by 1.21 for race. 2Result Comment: Please note new reference range for adult Protein. Immunizations Vaccine Date Refusal Reason influenza virus vaccine, live 01/01/13 influenza virus vaccine, live 01/31/12 pneumococcal 23-polyvalent vaccine 01/06/09 Procedures No data available for this section Social History Social History Type Response Smoking Status Never smoker Assessment and Plan Extracted from: Title: Ambulatory Patient Education Author: Liana Arnett MA Date: 10/28/15 Behavioral Health Panic Attacks Panic attacks are sudden, short-livedsurges of severe anxiety, fear, or discomfort. They may occur for no reason when you are relaxed, when you are anxious, or when you are sleeping. Panic attacks may occur for a number of reasons: Healthy people occasionally have panic attacks in extreme, life- threatening situations, such as war or natural disasters. Normal anxiety is a protective mechanism of the body that helps us react to danger (fight or flight response). Panic attacks are often seen with anxiety disorders, such as panic disorder , social anxiety disorder, generalized anxiety disorder, and phobias. Anxiety disorders cause excessive or uncontrollable anxiety. They may interfere with your relationships or other life activities. Panic attacks are sometimes seen with other mental illnesses, such as depression and posttraumatic stress disorder. Certain medical conditions, prescription medicines, and drugs of abuse can cause panic attacks. SYMPTOMS Panic attacks start suddenly, peak within 20 minutes, and are accompanied by four or more of the following symptoms: Pounding heart or fast heart rate (palpitations). Sweating. Trembling or shaking. Shortness of breath or feeling smothered. Feeling choked. Chest pain or discomfort. Nausea or strange feeling in your stomach. Dizziness, light-headedness, or feeling like you will faint. Chills or hot flushes. Numbness or tingling in your lips or hands and feet. Feeling that things are not real or feeling that you are not yourself. Fear of losing control or going crazy. Fear of dying. Some of these symptoms can mimic serious medical conditions. For example, you may think you are having a heart attack. Although panic attacks can be very scary, they are not life threatening. DIAGNOSIS Panic attacks are diagnosed through an assessment by your health care provider. Your health care provider will ask questions about your symptoms, such as where and when they occurred. Your health care provider will also ask about your medical history and use of alcohol and drugs, including prescription medicines. Your health care provider may order blood tests or other studies to rule out a serious medical condition. Your health care provider may refer you to a mental health professional for further evaluation. TREATMENT Most healthy people who have one or two panic attacks in an extreme, life- threatening situation will not require treatment. The treatment for panic attacks associated with anxiety disorders or other mental illness typically involves counseling with a mental health professional, medicine, or a combination of both. Your health care provider will help determine what treatment is best for you. Panic attacks due to physical illness usually go away with treatment of the illness. If prescription medicine is causing panic attacks, talk with your health care provider about stopping the medicine, decreasing the dose, or substituting another medicine. Panic attacks due to alcohol or drug abuse go away with abstinence. Some adults need professional help in order to stop drinking or using drugs. HOME CARE INSTRUCTIONS Take all medicines as directed by your health care provider. Schedule and attend follow-up visits as directed by your health care provider. It is important to keep all your appointments. SEEK MEDICAL CARE IF: You are not able to take your medicines as prescribed. Your symptoms do not improve or get worse. SEEK IMMEDIATE MEDICAL CARE IF: You experience panic attack symptoms that are different than your usual symptoms. You have serious thoughts about hurting yourself or others. You are taking medicine for panic attacks and have a serious side effect. MAKE SURE YOU: Understand these instructions. Will watch your condition. Will get help right away if you are not doing well or get worse. This information is not intended to replace advice given to you by your health care provider. Make sure you discuss any questions you have with your health care provider. Document Released: 04/08/2006 Document Revised: 04/13/2014 Document Reviewed: [employer] Patient Information 2016 [employer] [facility]. No follow up information was provided. Extracted from: Title: Shortness of breath Author: Anuel Zhang MD Date: 10/28/15 Impression and Plan Diagnosis Shortness of breath ([id number]-DL R06.02, Working, Medical). Lipoedema ([id number] R60.9, Working, Medical). Anxiety ([id number] F41.9, Working, Medical). Plan: Patient will have labs done today. She will notified of lab results.. Patient Instructions: Panic Attacks.
--- OUTSIDE RECORDS SUMMARY | 2018-08-05 15:52 | XMS REPORT | Continuity of Care Document ---
Author Organization Unknown Address Unknown Allergies Active Description Code Type Severity Reaction Onset Reported/Identified Relationship to Patient Clinical Status Yes sulfa drugs NKMA N/A hives 01/25/2014 Medications Medication Packaging Start Date Stop Date Route Dosage Sig chlordiazePOXIDE(chlordiazePOXIDE 10 mg oral capsule) 1 caps 10/16/2013 03/08/2014 Oral 10 mg 1 caps, Oral, Daily, [facility]/[phone] , 30 caps levothyroxine(levothyroxine 100 mcg (0.1 mg) oral tablet) 10/16/2013 01/13/2014 See Instructions, TAKE 1 TABLET BY MOUTH EVERY DAY , 90 tabs fosinopril(fosinopril 40 mg oral tablet) 10/16/2013 11/16/2013 See Instructions, TAKE ONE TABLET BY MOUTH DAILY, 30 tabs oxyCODONE-acetaminophen(Percocet 7.5/325 oral tablet) 1 tabs 10/19/2013 11/17/2013 Oral 1 tabs, Oral, QID, 120 tabs escitalopram(Lexapro 20 mg oral tablet) 11/02/2013 05/17/2014 See Instructions, TAKE 1 TABLET BY MOUTH DAILY., 30 unknown unit estradiol(Depo-Estradiol 5 mg/mL intramuscular solution) 11/02/2013 07/30/2014 See Instructions, INJECT 1 ML EVERY 3 WEEKS, 1 unknown unit fluticasone(Flovent HFA 110 mcg/inh inhalation aerosol) 11/03/2013 03/08/2014 See Instructions, TAKE 2 PUFFS BY MOUTH TWICE DAILY, 12 unknown unit fosinopril(fosinopril 40 mg oral tablet) 11/16/2013 See Instructions, TAKE ONE TABLET BY MOUTH DAILY, 30 tabs oxyCODONE-acetaminophen(Percocet 7.5/325 oral tablet) 1 tabs 11/17/2013 12/15/2013 Oral 1 tabs, Oral, QID, 120 tabs diphenoxylate-atropine(Lomotil 2.5 mg-0.025 mg oral tablet) 1 tabs 12/03/2013 Oral 1 tabs, Oral, QID, PRN: as needed for loose stool albuterol(ProAir HFA 90 mcg/inh inhalation aerosol) 1 puffs 12/03/2013 03/08/2014 Inhalation 1 puffs, Inhalation, q4hr, 8.5 g , PRN: as needed for wheezing theophylline(theophylline 200 mg oral tablet, extended release) 1 tabs 12/03/2013 12/15/2013 Oral 200 mg 1 tabs, Oral, q12hr, 60 tabs theophylline(theophylline 200 mg oral tablet, extended release) 12/15/2013 06/15/2014 See Instructions, TAKE 1 TABLET BY MOUTH TWICE DAILY, 60 tabs oxyCODONE-acetaminophen(Percocet 7.5/325 oral tablet) 1 tabs 12/15/2013 01/18/2014 Oral 1 tabs, Oral, QID, 120 tabs levothyroxine(levothyroxine 100 mcg (0.1 mg) oral tablet) 01/13/2014 04/18/2015 See Instructions, TAKE 1 TABLET BY MOUTH EVERY DAY , 90 tabs, 4 Refill(s) oxyCODONE-acetaminophen(Percocet 7.5/325 oral tablet) 1 tabs 01/18/2014 02/22/2014 Oral 1 tabs, Oral, QID, 120 tabs cephalexin(Keflex 500 mg oral capsule) 1 caps 01/25/2014 02/04/2014 Oral 500 mg 1 caps, Oral, q8hr, 30 caps fosinopril(fosinopril 40 mg oral tablet) 02/17/2014 06/03/2014 See Instructions, TAKE ONE TABLET BY MOUTH DAILY, 30 tabs theophylline(theophylline 200 mg oral tablet, extended release) 02/17/2014 06/15/2014 See Instructions, TAKE 1 TABLET BY MOUTH TWICE DAILY, 60 tabs oxyCODONE-acetaminophen(Percocet 7.5/325 oral tablet) 1 tabs 02/22/2014 03/22/2014 Oral 1 tabs, Oral, QID, 120 tabs albuterol(ProAir HFA 90 mcg/inh inhalation aerosol) 03/08/2014 10/14/2014 See Instructions, INHALE 1 TO 2 PUFFS BY MOUTH EVERY 4 TO 6 HOURS NEEDED, 9 g chlordiazePOXIDE(chlordiazePOXIDE 10 mg oral capsule) 1 caps 03/08/2014 10/14/2014 Oral 10 mg 10 mg=1 caps, Oral, Daily, [phone], 30 caps, 2 Refill(s) fluticasone(Flovent HFA 110 mcg/inh inhalation aerosol) 03/08/2014 04/26/2014 See Instructions, TAKE 2 PUFFS BY MOUTH TWICE DAILY, 12 unknown unit oxyCODONE-acetaminophen(Percocet 7.5/325 oral tablet) 1 tabs 03/22/2014 03/22/2014 Oral 1 tabs, Oral, QID, 120 tabs valACYclovir(valACYclovir 500 mg oral tablet) 03/22/2014 10/28/2015 See Instructions, tabs mg Oral q12hr oxyCODONE-acetaminophen(Percocet 7.5/325 oral tablet) 1 tabs 03/22/2014 04/19/2014 Oral 1 tabs, Oral, QID, 120 tabs escitalopram(Lexapro 20 mg oral tablet) 04/23/2014 05/17/2014 See Instructions, TAKE 1 TABLET BY MOUTH DAILY., 30 unknown unit fluticasone(Flovent HFA 110 mcg/inh inhalation aerosol) 04/26/2014 05/17/2014 See Instructions, TAKE 2 PUFFS BY MOUTH TWICE DAILY, 12 unknown unit fluticasone(Flovent HFA 110 mcg/inh inhalation aerosol) 05/17/2014 11/25/2015 See Instructions, TAKE 2 PUFFS BY MOUTH TWICE DAILY, 12 unknown unit escitalopram(Lexapro 20 mg oral tablet) 05/17/2014 06/25/2014 See Instructions, TAKE 1 TABLET BY MOUTH DAILY., 30 unknown unit oxyCODONE-acetaminophen(Percocet 7.5/325 oral tablet) 1 tabs 06/10/2014 07/14/2014 Oral 1 tabs, Oral, QID, 120 tabs theophylline(theophylline 200 mg oral tablet, extended release) 06/15/2014 See Instructions, TAKE 1 TABLET BY MOUTH TWICE DAILY, 60 tabs escitalopram(Lexapro 20 mg oral tablet) 06/25/2014 06/30/2015 See Instructions, TAKE 1 TABLET BY MOUTH DAILY., 30 unknown unit, 11 Refill(s) estradiol(Depo-Estradiol 5 mg/mL intramuscular solution) 07/30/2014 01/24/2015 See Instructions, INJECT 1 ML EVERY 3 WEEKS, 1 unknown unit oxyCODONE-acetaminophen(Percocet 7.5/325 oral tablet) 1 tabs 08/13/2014 09/08/2014 Oral 1 tabs, Oral, QID, 120 tabs, 0 Refill(s) fluticasone(Flovent HFA 110 mcg/inh inhalation aerosol) 08/16/2014 11/25/2015 See Instructions, TAKE 2 PUFFS BY MOUTH TWICE DAILY, 12 unknown unit oxyCODONE-acetaminophen(Percocet 7.5/325 oral tablet) 1 tabs 09/08/2014 10/12/2014 Oral 1 tabs, Oral, QID, 120 tabs, 0 Refill(s) theophylline(theophylline 200 mg oral tablet, extended release) 09/14/2014 See Instructions, TAKE 1 TABLET BY MOUTH TWICE DAILY, 60 tabs, 1 Refill(s) oxyCODONE-acetaminophen(Percocet 7.5/325 oral tablet) 1 tabs 10/12/2014 11/09/2014 Oral 1 tabs, Oral, QID, 120 tabs, 0 Refill(s) oxyCODONE-acetaminophen(Percocet 7.5/325 oral tablet) 1 tabs 11/09/2014 12/09/2014 Oral 1 tabs, Oral, QID, 120 tabs, 0 Refill(s) theophylline(theophylline 200 mg oral tablet, extended release) 11/16/2014 03/10/2015 See Instructions, TAKE 1 TABLET BY MOUTH TWICE DAILY, 60 tabs, 3 Refill(s) oxyCODONE-acetaminophen(Percocet 7.5/325 oral tablet) 1 tabs 12/09/2014 12/29/2014 Oral 1 tabs, Oral, QID, 120 tabs, 0 Refill(s) potassium chloride(potassium chloride 20 mEq oral tablet, extended release) tabs 12/29/2014 Oral mEq mEq=tabs, Oral, BID, Prescribed by integrated campaign manager in [place], 0 Refill(s) oxyCODONE-acetaminophen(Percocet 7.5/325 oral tablet) 1 tabs 12/29/2014 12/29/2014 Oral 1 tabs, Oral, QID, 120 tabs, 0 Refill(s) oxyCODONE-acetaminophen(Percocet 7.5/325 oral tablet) 1 tabs 12/29/2014 12/29/2014 Oral 1 tabs, Oral, QID, DO NOT FILL UNTIL 01/27/15, 120 tabs, 0 Refill(s) oxyCODONE-acetaminophen(Percocet 7.5/325 oral tablet) 1 tabs 12/29/2014 04/07/2015 Oral 1 tabs, Oral, QID, DO NOT FILL UNTIL 02/25/15, 120 tabs, 0 Refill(s) estradiol(Depo-Estradiol 5 mg/mL intramuscular solution) 01/24/2015 06/03/2015 See Instructions, INJECT 1 ML EVERY 3 WEEKS, 1 unknown unit fluticasone(Flovent HFA 110 mcg/inh inhalation aerosol) 02/28/2015 05/20/2015 See Instructions, TAKE 2 PUFFS BY MOUTH TWICE DAILY, 12 unknown unit, 2 Refill(s) oxycodone-acetaminophen(Percocet 7.5/325 oral tablet) 1 tabs 07/02/2016 07/02/2016 Oral 1 tabs, Oral, QID, DO NOT FILL UNTIL 07/14/16, 120 tabs, 0 Refill(s) oxycodone-acetaminophen(Percocet 7.5/325 oral tablet) 1 tabs 07/02/2016 10/09/2016 Oral 1 tabs, Oral, QID, DO NOT FILL UNTIL 09/10/16, 120 tabs, 0 Refill(s) fluticasone(Flovent HFA 110 mcg/inh inhalation aerosol) 10/01/2016 10/01/2016 See Instructions, INHALE 2 PUFFS BY MOUTH TWICE DAILY , 12 g, 2 Refill(s) fluticasone(Flovent HFA 110 mcg/inh inhalation aerosol) 12/21/2016 See Instructions, INHALE 2 PUFFS BY MOUTH TWICE DAILY, 12 g, 1 Refill(s) albuterol(ProAir HFA 90 mcg/inh inhalation aerosol) 01/10/2017 See Instructions, INHALE 1 TO 2 PUFFS BY MOUTH EVERY 4 TO 6 HOURS NEEDED, 8.5 g, 3 Refill(s) valACYclovir(valACYclovir 500 mg oral tablet) 1 tabs 01/10/2017 01/30/2017 Oral 500 mg 500 mg=1 tabs, Oral, q12hr, for 5 days, 10 tabs, 3 Refill(s) escitalopram(Lexapro 20 mg oral tablet) 1 tabs 01/21/2017 Oral 20 mg 20 mg=1 tabs, Oral, Daily, 30 tabs, 5 Refill(s) fluticasone(Flovent HFA 110 mcg/inh inhalation aerosol) 01/21/2017 02/22/2017 See Instructions, INHALE 2 PUFFS BY MOUTH TWICE DAILY , 12 g, 1 Refill(s) fluticasone(Flovent HFA 110 mcg/inh inhalation aerosol) 02/22/2017 03/21/2017 See Instructions, INHALE 2 PUFFS BY MOUTH TWICE DAILY , 12 g, 1 Refill(s) oxycodone-acetaminophen(oxyCODONE-acetaminophen 5 mg-325 mg oral tablet) 1 tabs 05/01/2017 05/01/2017 Oral 1 tabs, Oral, QID, 120 tabs , 0 Refill(s) oxycodone-acetaminophen(oxyCODONE-acetaminophen 5 mg-325 mg oral tablet) 1 tabs 05/01/2017 05/01/2017 Oral 1 tabs, Oral, QID, DO NOT FILL UNTIL 05/30/17, 120 tabs, 0 Refill(s) oxycodone-acetaminophen(oxyCODONE-acetaminophen 5 mg-325 mg oral tablet) 1 tabs 05/01/2017 Oral 1 tabs, Oral, QID, DO NOT FILL UNTIL 06/28/17, 120 tabs, 0 Refill(s) fluticasone(Flovent HFA 110 mcg/inh inhalation aerosol) 2 puffs 06/03/2017 07/12/2017 Inhalation 2 puffs, Inhalation, BID, 1 Each , 0 Refill(s) oxycodone-acetaminophen(oxyCODONE-acetaminophen 5 mg-325 mg oral tablet) 1 tabs 08/02/2017 Oral 1 tabs, Oral, QID, DO NOT FILL UNTIL 09/29/2017, 120 tabs, 0 Refill(s) Problems There is no data. Procedures Code Description [place] [address] Office or other outpatient visit for the evaluation and management of an established patient, which requires at least 2 of these 3 ruiz components: An expanded problem focused history; An expanded prob 10/28/2015 41034 Office or other outpatient visit for the evaluation and management of an established patient, which requires at least 2 of these 3 ruiz components: A detailed history; A detailed examination; Medical d 07/02/2016 27158 Office or other outpatient visit for the evaluation and management of an established patient, which requires at least 2 of these 3 ruiz components: An expanded problem focused history; An expanded prob 01/10/2017 99848 Office or other outpatient visit for the evaluation and management of an established patient, which requires at least 2 of these 3 ruiz components: An expanded problem focused history; An expanded prob 05/01/2017 78336 Office or other outpatient visit for the evaluation and management of an established patient, which requires at least 2 of these 3 ruiz components: An expanded problem focused history; An expanded prob 08/02/2017 Results Test Result Range CBC With Platelet and Differential - 10/28/15 15:30 Absolute Basophils 0.04 10*3 0.00-0.20 Absolute Eosinophils 0.14 10*3 0.00-0.50 Absolute Lymphocytes 1.71 10*3 0.80-3.30 Absolute Monocytes 0.81 10*3 0.30-1.00 Absolute Neutrophils 5.33 10*3 1.90-7.00 Basophils 1 % 0-2 Eosinophils 2 % 0-4 HCT 41.5 % 37.0-47.0 HGB 13.6 g/dL 12.0-16.0 Immature Granulocytes 0.2 % 0.0-1.0 Lymphocytes 21 % 20-46 MCH 33.4 pg 27.0-32.0 MCHC 32.8 g/dL 32.0-36.0 MCV 102.0 fL 82.0-99.0 Monocytes 10 % 4-11 MPV 12.6 fL 8.8-14.8 Neutrophils 66 % 51-75 Platelet Count 220 K/uL 150-400 RBC 4.07 10*6/uL 4.00-5.20 RDW 13.2 % 11.5-14.5 WBC 8.0 K/uL 4.8-10.8 Comprehensive Metabolic Panel (CMP) - 10/28/15 15:30 Albumin 3.9 g/dL 3.4-4.8 Alkaline Phosphatase 106 U/L 40-150 ALT (SGPT) 19 U/L 0-55 Anion Gap 6 NA 3-20 AST (SGOT) 23 U/L 5-34 Bilirubin Total 0.3 mg/dL 0.2-1.2 BUN 20 mg/dL 10-20 Calcium 9.3 mg/dL 8.9-10.5 Chloride 109 mEq/L 99-111 CO2 25 mEq/L 22-31 Creatinine 0.77 mg/dL 0.57-1.11 Globulin 2.2 g/dL 1.8-4.0 Glucose 95 mg/dL 70-99 Potassium 5.1 mEq/L 3.5-5.2 Protein 6.1 g/dL 6.0-7.6 Sodium 140 mEq/L 135-144 eGFR - 10/28/15 15:30 eGFR >60 mL/min >60 TSH with Reflex Free T4 - 10/28/15 15:30 TSH with Reflex Free T4 1.32 uIU/mL 0.35-4.94 Comprehensive Metabolic Panel (CMP) - 05/01/17 11:04 Albumin 3.8 g/dL 3.4-4.8 Alkaline Phosphatase 82 U/L 40-150 ALT (SGPT) 25 U/L 0-55 AST (SGOT) 23 U/L 5-34 Bilirubin Total 0.5 mg/dL 0.2-1.2 BUN 17 mg/dL 10-20 Calcium 9.3 mg/dL 8.4-10.2 CO2 23 mEq/L 22-31 Creatinine 0.69 mg/dL 0.57-1.11 Globulin 2.7 g/dL 1.8-4.0 Glucose 113 mg/dL 70-99 Protein 6.5 g/dL 6.0-7.6 eGFR - 05/01/17 11:04 eGFR >60 mL/min >60 Encounters ACCT No. Visit Date/Time Discharge Status Pt. Type Provider Facility Loc./Unit Complaint [id number] 07/13/2013 09:21:00 07/13/2013 23:59:59 CLS Outpatient [id number] 08/02/2017 10:19:00 08/02/2017 23:59:00 DIS Outpatient Anuel Zhang [facility] W21 FM PAIN MEDS [id number] 05/01/2017 10:10:00 05/01/2017 23:59:00 DIS Outpatient Anuel Zhang Via [place] [id number] FM 3 MO CONT MED CK [id number] 01/10/2017 15:18:00 01/10/2017 23:59:00 DIS Outpatient Anuel Zhang Via [place] [address] FM MULTI ISSUES [id number] 07/02/2016 15:52:00 07/02/2016 23:59:00 DIS Outpatient Anuel Zhang [facility] [place] [address] FM TCPA BLOOD WORK UP [id number] 10/28/2015 14:26:00 10/28/2015 23:59:00 DIS Outpatient Anuel Zhang [facility] [place] [address] FM DIFFICULTY BREATHING . NERVOUS . PANIC [id number] 12/29/2014 10:29:00 12/29/2014 23:59:00 DIS Outpatient Anuel Zhang [facility] [place] [address] FM MED CK [id number] 08/03/2017 05:18:22 Document Registration [id number] 06/04/2017 05:18:11 Document Registration [id number] 05/02/2017 05:17:56 Document Registration [id number] 02/23/2017 05:17:17 Document Registration [id number] 01/22/2017 05:18:57 Document Registration [id number] 01/11/2017 05:17:21 Document Registration [id number] 12/22/2016 05:17:26 Document Registration [id number] 10/02/2016 05:16:43 Document Registration [id number] 07/03/2016 05:16:44 Document Registration [id number] 03/01/2015 05:17:39 Document Registration [id number] 02/09/2015 14:15:34 Document Registration [id number] 02/09/2015 13:44:24 Document Registration [id number] 02/09/2015 13:36:52 Document Registration [id number] 02/09/2015 13:13:43 Document Registration [id number] 02/09/2015 12:44:51 Document Registration [id number] 02/09/2015 12:22:26 Document Registration [id number] 02/09/2015 12:01:45 Document Registration [id number] 02/09/2015 11:54:44 Document Registration [id number] 02/09/2015 11:42:12 Document Registration [id number] 02/09/2015 11:28:09 Document Registration [id number] 02/09/2015 11:21:58 Document Registration [id number] 02/09/2015 11:16:07 Document Registration [id number] 02/09/2015 11:02:33 Document Registration [id number] 02/09/2015 10:50:23 Document Registration [id number] 02/09/2015 10:45:15 Document Registration [id number] 02/09/2015 10:32:35 Document Registration [id number] 02/09/2015 10:22:12 Document Registration [id number] 02/09/2015 10:16:44 Document Registration [id number] 02/09/2015 10:03:50 Document Registration [id number] 02/09/2015 09:53:54 Document Registration [id number] 02/09/2015 09:37:58 Document Registration [id number] 02/09/2015 09:32:41 Document Registration [id number] 02/09/2015 09:19:57 Document Registration [id number] 02/09/2015 09:10:06 Document Registration
[2018-08-05] MEDS ORDERED: TETANUS,DIPTH,PERTUSS P/F (BOOSTRIX) 0.5 ML VIAL IM ONE (16:00)
[2018-08-05] MEDS ORDERED: LIDOCAINE 1% INJ 20 ML 20 ML VIAL INJ ONE (16:00)
[2018-08-05] MEDS ORDERED: fentaNYL INJECTION 100 MCG/2 ML AMP ONE (16:40)
--- NOTE | 2018-08-05 16:46 | Diagnostic Imaging Report ---
PROCEDURE: CT head, face, and cervical spine without contrast. TECHNIQUE: Multiple contiguous axial images were obtained through the head, neck, and facial bones without the use of intravenous contrast. Sagittal and coronal reformations through the cervical spine and facial bones were also performed. Auto Exposure Controls were utilized during the CT exam to meet ALARA standards for radiation dose reduction. INDICATION: Fall, landing on face. COMPARISON: No prior study is available for comparison. CT HEAD: The ventricles and sulci are appropriate for the patient's age. No sulcal effacement, midline shift, or hemorrhage is detected. Cisterns are patent. Visualized paranasal sinuses are clear. No depressed calvarial fracture is seen. IMPRESSION: No acute intracranial process is detected. CT FACE: The mandible appears intact. Zygomatic arches are intact. Maxillary sinus lamas are intact. Bilateral orbital lamas appear to be intact. Both globes are unremarkable. There appear to be questionable nondisplaced bilateral nasal bone fractures. Visualized paranasal sinuses are clear. Mastoid air cells are clear. IMPRESSION: Nasal bone fractures, nondisplaced. No other significant abnormality is seen. CT CERVICAL SPINE: Curvature and alignment are normal. There is multilevel degenerative disc disease with variable disc space narrowing and marginal spurring. Prevertebral tissues are normal. Odontoid is intact. No fractures are seen. IMPRESSION: Cervical spondylosis. No acute bony abnormality is detected. Dictated by: Dictated on workstation # [id number]
--- NOTE | 2018-08-05 17:20 | ED Trauma-Multisystem ---
General Chief Complaint: Trauma-Non Activation Stated Complaint: FALL/ FACIAL INJURY Nursing Triage Note: PT BROUGHT IN BY EMS FROM [facility] AFTER A FALL. PT STATES SHE WAS STEPPING UP ONTO CURB, TRIPPED, AND HIT FACE. DENIES LOC. PT HAS LARGE LACERATION ON FOREHEAD. Source of Information: Patient, EMS, Family Exam Limitations: No Limitations History of Present Illness Date Seen by Provider: Aug 05, 2018 Time Seen by Provider: 16:00 Allergies and Home Medications Allergies Coded Allergies: amoxicillin (Verified Allergy, Unknown, 08/05/18) cefdinir (Verified Allergy, Unknown, 08/05/18) clavulanic acid (Verified Allergy, Unknown, 08/05/18) diphenhydramine (Verified Allergy, Unknown, 08/05/18) doxycycline (Verified Allergy, Unknown, 08/05/18) Past Qzpaxge-Brmjgz-Klgtbq Hx Patient Social History Alcohol Use: Denies Use Recreational Drug Use: No Smoking Status: Never a Smoker Recent Foreign Travel: No Contact w/Someone Who Travel: No Recent Infectious Disease Expo: No Recent Hopitalizations: No Immunizations Up To Date Tetanus Booster (TDap): Less than 5yrs PED Vaccines UTD: Yes Past Medical History Surgeries: Yes Appendectomy, Gallbladder, Hysterectomy, Orthopedic Respiratory: Yes Cardiac: Yes Hypertension Neurological: No Gastrointestinal: Yes Irritable Bowel Musculoskeletal: Yes Endocrine: Yes Hypothyroidsim HEENT: Yes Hearing Impairment: Hearing Aide Right, Hearing Aide Left Psychosocial: Yes Anxiety Integumentary: No Physical Exam Vital Signs Vital Signs - First Documented 08/05/18 15:45 Pulse 94 Resp 20 B/P (MAP) 149/120 (130) Pulse Ox 98 O2 Delivery Room Air Height, Weight, BMI Height: 5'1.00" Weight: 185lbs. oz. 83.066561jn; BMI Method:Stated Procedures/Interventions Suture: Ethlion Suture Size: 5-0 Number of Sutures: 10 Progress/Results/Core Measures Results/Orders My Orders Orders - KOBY PARRA Lidocaine 1% Inj 20 Ml (Xylocaine 1% Inj (08/05/18 16:00) Dipht,Pertuss(Acell),Tet Adult (Boostrix (08/05/18 16:00) Ct Head/Face/Cervical Wo (08/05/18 16:01) Fentanyl Injection (Sublimaze Injection (08/05/18 16:40) Vital Signs/I&O 08/05/18 15:45 Pulse 94 Resp 20 B/P (MAP) 149/120 (130) Pulse Ox 98 O2 Delivery Room Air Blood Pressure Mean: 130 Departure Impression Primary Impression: Minor head injury Additional Impression: Laceration Disposition: 01 HOME, SELF-CARE Condition: Stable/Unchanged Departure-Patient Inst. Decision time for Depature: 17:18 Referrals: NO,LOCAL PHYSICIAN (PCP/Family) Primary Care Physician Patient Instructions: Laceration Repair With Stitches (DC), Minor Head Injury Add. Discharge Instructions: Watch for signs of infection such as increased redness, swelling, drainage, pain. You may use Tylenol and ibuprofen as directed by the bottle for pain relief. Follow-up with your primary care provider within 1 week for recheck. And to have the sutures removed from her forehead. Return back to the emergency room for worsening symptoms, change in level of consciousness, or concerns as needed. All discharge instructions reviewed with patient and/or family. Voiced understanding. KOBY PARRA Aug 05, 2018 17:20
[2018-08-05 17:41] VITALS: BP 145/71
== END 2018-08-05 17:41 | disposition home or self-care (01) ==
LOC: ER 15:47
DX: S09.90XA Unspecified injury of head, initial encounter (principal); S01.81XA Laceration without foreign body of other part of head, initial encounter; I10 Essential (primary) hypertension; K58.9 Irritable bowel syndrome, unspecified; E03.9 Hypothyroidism, unspecified; F41.9 Anxiety disorder, unspecified; Z88.0 Allergy status to penicillin; Z90.49 Acquired absence of other specified parts of digestive tract; Z90.710 Acquired absence of both cervix and uterus; Z88.1 Allergy status to other antibiotic agents; Z88.8 Allergy status to other drugs, medicaments and biological substances; Z23 Encounter for immunization; W10.1XXA Fall (on)(from) sidewalk curb, initial encounter; W22.09XA Striking against other stationary object, initial encounter
CPT/HCPCS: 12014; 70450; 70486; 72125